=== PATIENT | male | born 1940 | race Caucasian/White ===

== ENCOUNTER 2017-02-05 15:02 | Emergency (ER) | payer OTHER ==
[~2017-02-05] VITALS: Ht 193 cm; Wt 105.0 kg
[2017-02-05 16:14] LABS: ADD MIUA? YES; BILIRUBIN NEGATIVE; BLOOD NEGATIVE; COLOR YELLOW ((YELLOW)); GLUCOSE (STRIP) 50; KETONES NEGATIVE; LEUKOCYTES MODERATE; NITRITE NEGATIVE; PROTEIN (STRIP) 100; SPECIFIC GRAVITY 1.021 (1.000-1.030); UROBILINOGEN 0.2 MG/DL (0.2-1.0)
[2017-02-05 16:34] LABS: BACTERIA RARE /HPF; EPITHELIAL CELLS RARE /HPF; MUCUS TRACE /LPF; UCUL ADDED? YES; WHITE BLOOD CELLS TNTC /HPF (0-5)
[2017-02-05 16:41] LABS: HEMATOCRIT 39.2 % (38.0-50.0); MCH 28.7 PG (29.0-34.0); MCHC 32.9 G/DL (30.0-36.0); MCV 87.1 FL (86-99); PLATELET COUNT 230 K/uL (156-360); RBC DIS.WIDTH-CV 13.9 % (11.8-14.6); RBC DIS.WIDTH-SD 44.6 % (39-53); WHITE BLOOD COUNT 8.4 K/uL (4.1-10.2)
[2017-02-05 16:52] LABS: CHLORIDE 103 mEq/L (99-109); POTASSIUM 4.1 mEq/L (3.7-5.4); SODIUM 132 mEq/L (136-147)
[2017-02-05 16:54] LABS: GLUCOSE 193 mg/dL (70-99)
[2017-02-05 16:55] LABS: ANION GAP 10 MEQ/L (2-14)
[2017-02-05 16:56] LABS: TOTAL BILIRUBIN 0.6 mg/dL (0.0-1.0)
[2017-02-05 16:57] LABS: ALKALINE PHOSPHATASE 54 IU/L (3-129)
[2017-02-05 16:58] LABS: RED BLOOD CELLS RARE /HPF (0-5)
[2017-02-05 16:58] LABS: GFR ESTIMATE (CALCULATED) > 59 mL/min/
[2017-02-05 16:59] LABS: CASTS NONE SEEN /LPF; CRYSTALS NONE SEEN
[2017-02-05 16:59] LABS: UREA NITROGEN (BUN) 15 mg/dL (9-23)
[2017-02-05] MEDS ORDERED: LISINOPRIL40 MG PO (22:09)
[2017-02-05] MEDS ORDERED: ZOFRAN4 MG PO (22:09)
[2017-02-05] MEDS ORDERED: KEFLEX500 MG PO (22:09)
[2017-02-05] MEDS ORDERED: MACROBID100 MG PO (22:34)
[2017-02-05 22:40] VITALS: BP 169/89
== END 2017-02-05 23:03 | disposition home or self-care (01) ==
LOC: EME 15:02
PROVIDERS: Physician Assistant
DX: N20.0 Calculus of kidney (principal); R11.2 Nausea with vomiting, unspecified; Z98.890 Other specified postprocedural states; E78.5 Hyperlipidemia, unspecified; I10 Essential (primary) hypertension; Z87.442 Personal history of urinary calculi; Z87.440 Personal history of urinary (tract) infections
CPT/HCPCS: 74176; 80053; 81003; 83605; 85027; 87040; 87086; 99281; 99285; J0696; J2405; J7030; J7050

== ENCOUNTER → 2017-03-14 | Outpatient (CLI) | payer OTHER ==
[~2017-03-14] MED LIST: KEFLEX500 MG PO; LISINOPRIL40 MG PO; MACROBID100 MG PO; ZOFRAN4 MG PO
== END | disposition home or self-care (01) ==
LOC: NUC 03-12 10:00 → MERGE 03-12 13:00 → NUC 09:44
DX: M41.85 Other forms of scoliosis, thoracolumbar region (principal); M15.0 Primary generalized (osteo)arthritis
CPT/HCPCS: 78306; A9503

== ENCOUNTER 2017-06-11 17:33 | Emergency (ER) | payer OTHER ==
[~2017-06-11] VITALS: Ht 193 cm; Wt 103.0 kg
[2017-06-11 18:54] LABS: ADD MIUA? YES; BILIRUBIN NEGATIVE; BLOOD SMALL; GLUCOSE (STRIP) NEGATIVE; KETONES NEGATIVE; LEUKOCYTES MODERATE; NITRITE POSITIVE; PROTEIN (STRIP) 100; SPECIFIC GRAVITY 1.009 (1.000-1.030)
[2017-06-11 18:55] LABS: COLOR DK YELLOW ((YELLOW))
[2017-06-11 19:23] LABS: EPITHELIAL CELLS RARE /HPF; WHITE BLOOD CELLS TNTC /HPF (0-5)
[2017-06-11 19:24] LABS: BACTERIA 3+ /HPF; MUCUS RARE /LPF; UCUL ADDED? YES
[2017-06-11 20:04] LABS: EOSINOPHIL (%) 3.4 % (0-5); EOSINOPHIL COUNT 0.2 K/uL (0-0.3); HEMATOCRIT 34.3 % (38.0-50.0); IMMATURE GRANULOCYTE (%) 0.6 % (0.0-0.7); INSTRUMENT ABS NEUTROPHIL CT 4.3 K/uL; LYMPHOCYTE COUNT 0.9 K/uL (1.0-2.8); MCH 29.7 PG (29.0-34.0); MCHC 34.1 G/DL (30.0-36.0); MCV 87.1 FL (86-99); MEAN PLAT.VOLUME 8.7 uM^3 (9.0-12.4); MONOCYTE (%) 15.6 % (3-12); NEUTROPHIL (%) 66.3 % (45-76); NEUTROPHIL COUNT 4.3 K/uL (1.8-6.4); PLATELET COUNT 173 K/uL (156-360); RBC DIS.WIDTH-CV 14.2 % (11.8-14.6); RBC DIS.WIDTH-SD 45.4 % (39-53); RED BLOOD COUNT 3.94 M/uL (4.00-5.50); WHITE BLOOD COUNT 6.5 K/uL (4.1-10.2)
[2017-06-11 20:14] LABS: CHLORIDE 101 mEq/L (99-109); SODIUM 131 mEq/L (136-147)
[2017-06-11 20:16] LABS: GLUCOSE 128 mg/dL (70-99)
[2017-06-11 20:17] LABS: ANION GAP 10 MEQ/L (2-14)
[2017-06-11 20:18] LABS: TOTAL BILIRUBIN 1.2 mg/dL (0.0-1.0)
[2017-06-11 20:19] LABS: ALKALINE PHOSPHATASE 51 IU/L (3-129)
[2017-06-11 20:20] LABS: GFR ESTIMATE (CALCULATED) > 59 mL/min/
[2017-06-11 20:21] LABS: UREA NITROGEN (BUN) 17 mg/dL (9-23)
[2017-06-11] MEDS ORDERED: NORCO 5/3251 TABLET PO (21:09)
[2017-06-11 21:24] VITALS: BP 144/76
== END 2017-06-11 21:25 | disposition home or self-care (01) ==
LOC: EME 17:33
PROVIDERS: Physician Assistant
PROC: 0T9B70Z Drainage of Bladder with Drainage Device, Via Natural or Artificial Opening (ICD-10-PCS; principal; 2017-06-11)
DX: R33.9 Retention of urine, unspecified (principal); N30.00 Acute cystitis without hematuria; C61 Malignant neoplasm of prostate; I10 Essential (primary) hypertension; E78.5 Hyperlipidemia, unspecified; Z88.0 Allergy status to penicillin; Z92.3 Personal history of irradiation
CPT/HCPCS: 80053; 81003; 85025; 87077; 87086; 87186; 99281; 99284

== ENCOUNTER 2017-06-15 22:36 | Emergency (ER) | payer OTHER ==
[~2017-06-15] VITALS: Ht 193 cm; Wt 101.3 kg
[~2017-06-15 22:36] MED LIST changes: +NORCO 5/3251 TABLET PO
[2017-06-15 23:15] LABS: ADD MIUA? YES; BILIRUBIN NEGATIVE; BLOOD SMALL; COLOR YELLOW ((YELLOW)); GLUCOSE (STRIP) NEGATIVE; KETONES NEGATIVE; LEUKOCYTES LARGE; NITRITE NEGATIVE; PROTEIN (STRIP) 100; SPECIFIC GRAVITY 1.009 (1.000-1.030); UROBILINOGEN 0.2 MG/DL (0.2-1.0)
[2017-06-15 23:21] LABS: BACTERIA RARE /HPF; EPITHELIAL CELLS NONE SEEN /HPF; MUCUS TRACE /LPF; UCUL ADDED? YES; WHITE BLOOD CELLS TNTC /HPF (0-5)
[2017-06-16 00:49] LABS: HEMATOCRIT 36.4 % (38.0-50.0); MCH 29.3 PG (29.0-34.0); MCHC 33.5 G/DL (30.0-36.0); MCV 87.5 FL (86-99); MEAN PLAT.VOLUME 8.6 uM^3 (9.0-12.4); PLATELET COUNT 194 K/uL (156-360); RBC DIS.WIDTH-CV 14.3 % (11.8-14.6); RBC DIS.WIDTH-SD 45.4 % (39-53); RED BLOOD COUNT 4.16 M/uL (4.00-5.50); WHITE BLOOD COUNT 5.8 K/uL (4.1-10.2)
[2017-06-16 01:02] LABS: CHLORIDE 104 mEq/L (99-109); POTASSIUM 4.4 mEq/L (3.7-5.4); SODIUM 135 mEq/L (136-147)
[2017-06-16 01:03] LABS: GLUCOSE 127 mg/dL (70-99)
[2017-06-16 01:05] LABS: ANION GAP 10 MEQ/L (2-14)
[2017-06-16 01:07] LABS: GFR ESTIMATE (CALCULATED) 52 mL/min/
[2017-06-16 01:08] LABS: UREA NITROGEN (BUN) 19 mg/dL (9-23)
[2017-06-16 01:22] VITALS: BP 151/82
[2017-06-16] MEDS ORDERED: ZOFRAN ODT4 MG PO (08:04)
== END 2017-06-16 01:23 | disposition home or self-care (01) ==
LOC: EME 22:36
PROVIDERS: Physician Assistant Medical
DX: N39.0 Urinary tract infection, site not specified (principal); Z85.46 Personal history of malignant neoplasm of prostate; Z87.442 Personal history of urinary calculi; Z87.440 Personal history of urinary (tract) infections; Z88.0 Allergy status to penicillin
CPT/HCPCS: 80048; 81003; 83605; 85027; 87040; 87086; 99281; 99284

== ENCOUNTER 2017-06-16 06:56 | Emergency (ER) | payer OTHER ==
[~2017-06-16] VITALS: Ht 193 cm; Wt 102.6 kg
[2017-06-16] MEDS ORDERED: ZOFRAN ODT4 MG PO (08:04)
[2017-06-16 08:17] VITALS: BP 124/89
== END 2017-06-16 08:17 | disposition home or self-care (01) ==
LOC: EME 06:56
PROC: 0T9B70Z Drainage of Bladder with Drainage Device, Via Natural or Artificial Opening (ICD-10-PCS; principal; 2017-06-16)
DX: R33.9 Retention of urine, unspecified (principal); N39.0 Urinary tract infection, site not specified; R11.0 Nausea; Z85.46 Personal history of malignant neoplasm of prostate; Z87.442 Personal history of urinary calculi; Z88.0 Allergy status to penicillin
CPT/HCPCS: 99281; 99284

== ENCOUNTER 2017-06-22 04:24 | Emergency (ER) | payer OTHER ==
[~2017-06-22] VITALS: Ht 193 cm; Wt 101.2 kg
[~2017-06-22 04:24] MED LIST changes: +ZOFRAN ODT4 MG PO
[2017-06-22 04:49] LABS: HEMATOCRIT 37.1 % (38.0-50.0); MCH 29.6 PG (29.0-34.0); MCV 87.1 FL (86-99); PLATELET COUNT 194 K/uL (156-360); RBC DIS.WIDTH-CV 14.6 % (11.8-14.6); RBC DIS.WIDTH-SD 46.4 % (39-53); RED BLOOD COUNT 4.26 M/uL (4.00-5.50); WHITE BLOOD COUNT 7.9 K/uL (4.1-10.2)
[2017-06-22 05:01] LABS: CHLORIDE 100 mEq/L (99-109); POTASSIUM 4.4 mEq/L (3.7-5.4)
[2017-06-22 05:02] LABS: SODIUM 128 mEq/L (136-147)
[2017-06-22 05:03] LABS: GLUCOSE 130 mg/dL (70-99)
[2017-06-22 05:04] LABS: ANION GAP 10 MEQ/L (2-14)
[2017-06-22 05:07] LABS: GFR ESTIMATE (CALCULATED) 48 mL/min/
[2017-06-22 05:08] LABS: UREA NITROGEN (BUN) 27 mg/dL (9-23)
[2017-06-22] MEDS ORDERED: CIPRO500 MG PO (05:10)
[2017-06-22 05:28] VITALS: BP 141/83
[2017-06-22 05:33] LABS: ADD MIUA? YES; BILIRUBIN NEGATIVE; BLOOD SMALL; COLOR AMBER ((YELLOW)); GLUCOSE (STRIP) NEGATIVE; KETONES NEGATIVE; LEUKOCYTES NEGATIVE; NITRITE POSITIVE; PROTEIN (STRIP) >=500; SPECIFIC GRAVITY 1.019 (1.000-1.030)
[2017-06-22 05:58] LABS: BACTERIA RARE /HPF; EPITHELIAL CELLS NONE SEEN /HPF; MUCUS NONE SEEN /LPF; RED BLOOD CELLS TNTC /HPF (0-5); UCUL ADDED? YES
== END 2017-06-22 05:29 | disposition home or self-care (01) ==
LOC: EME 04:24
PROVIDERS: Emergency Medicine
PROC: 0T2BX0Z Change Drainage Device in Bladder, External Approach (ICD-10-PCS; principal; 2017-06-22)
DX: N39.0 Urinary tract infection, site not specified (principal); T83.098A Other mechanical complication of other urinary catheter, initial encounter; R33.9 Retention of urine, unspecified; C61 Malignant neoplasm of prostate; N18.9 Chronic kidney disease, unspecified; E87.1 Hypo-osmolality and hyponatremia; Z87.442 Personal history of urinary calculi; Z88.0 Allergy status to penicillin
CPT/HCPCS: 80048; 81003; 85027; 87086; 99281; 99283

== ENCOUNTER 2017-06-22 15:23 | Emergency (ER) | payer OTHER ==
[~2017-06-22] VITALS: Ht 193 cm; Wt 100.2 kg
[~2017-06-22 15:23] MED LIST changes: +CIPRO500 MG PO
[2017-06-22 18:13] LABS: CHLORIDE 99 mEq/L (99-109); POTASSIUM 4.4 mEq/L (3.7-5.4); SODIUM 130 mEq/L (136-147)
[2017-06-22 18:14] LABS: GLUCOSE 124 mg/dL (70-99)
[2017-06-22 18:16] LABS: ANION GAP 10 MEQ/L (2-14)
[2017-06-22 18:18] LABS: GFR ESTIMATE (CALCULATED) 52 mL/min/
[2017-06-22 18:19] LABS: UREA NITROGEN (BUN) 23 mg/dL (9-23)
[2017-06-22 18:47] LABS: ADD MIUA? NO; BILIRUBIN NEGATIVE; BLOOD NEGATIVE; COLOR YELLOW ((YELLOW)); GLUCOSE (STRIP) NEGATIVE; KETONES NEGATIVE; LEUKOCYTES NEGATIVE; NITRITE NEGATIVE; PROTEIN (STRIP) 30; SPECIFIC GRAVITY 1.005 (1.000-1.030); UROBILINOGEN 0.2 MG/DL (0.2-1.0)
[2017-06-22 20:14] VITALS: BP 125/80
== END 2017-06-22 20:15 | disposition home or self-care (01) ==
LOC: EME 15:23
PROVIDERS: Physician Assistant
DX: N32.89 Other specified disorders of bladder (principal); Z85.46 Personal history of malignant neoplasm of prostate; Z87.440 Personal history of urinary (tract) infections; I10 Essential (primary) hypertension; E78.5 Hyperlipidemia, unspecified; Z87.442 Personal history of urinary calculi; Z88.0 Allergy status to penicillin; Z88.1 Allergy status to other antibiotic agents
CPT/HCPCS: 80048 91; 81003; 99281; 99284; J3010

== ENCOUNTER 2017-06-27 22:32 | Emergency (ER) | payer OTHER ==
[~2017-06-27] VITALS: Ht 193 cm; Wt 100.8 kg
[~2017-06-27 22:32] MED LIST changes: -BACTRIM,SEPT1 TABLET PO
[2017-06-27 23:51] LABS: ADD MIUA? YES; BILIRUBIN NEGATIVE; BLOOD SMALL; GLUCOSE (STRIP) 50; KETONES NEGATIVE; LEUKOCYTES NEGATIVE; NITRITE POSITIVE; PROTEIN (STRIP) 100; SPECIFIC GRAVITY 1.014 (1.000-1.030)
[2017-06-27 23:57] LABS: COLOR YELLOW ((YELLOW))
[2017-06-28] MEDS ORDERED: BACTRIM,SEPT1 TABLET PO (00:04)
[2017-06-28 00:20] VITALS: BP 108/62
[2017-06-28 00:22] LABS: BACTERIA NONE SEEN /HPF; EPITHELIAL CELLS NONE SEEN /HPF; MUCUS TRACE /LPF; UCUL ADDED? YES
== END 2017-06-28 00:26 | disposition home or self-care (01) ==
LOC: EME 22:32
PROVIDERS: Nurse Practitioner Family
PROC: 0T9B70Z Drainage of Bladder with Drainage Device, Via Natural or Artificial Opening (ICD-10-PCS; principal; 2017-06-27)
DX: N39.0 Urinary tract infection, site not specified (principal); C61 Malignant neoplasm of prostate; Z87.440 Personal history of urinary (tract) infections; Z87.442 Personal history of urinary calculi; I10 Essential (primary) hypertension; E78.5 Hyperlipidemia, unspecified; Z88.1 Allergy status to other antibiotic agents; Z88.0 Allergy status to penicillin
CPT/HCPCS: 81003; 87086; 99281; 99284

== ENCOUNTER → 2017-06-27 | Outpatient (CLI) | payer OTHER ==
[~2017-06-27] MED LIST changes: +BACTRIM,SEPT1 TABLET PO
== END | disposition home or self-care (01) ==
LOC: CDC 10:10
DX: R94.31 Abnormal electrocardiogram [ECG] [EKG] (principal)
CPT/HCPCS: 93000

== ENCOUNTER 2017-07-03 23:45 | Emergency (ER) | payer OTHER ==
[~2017-07-03] VITALS: Ht 193 cm; Wt 100.4 kg
[~2017-07-03 23:45] MED LIST changes: +BACTRIM,SEPT1 TABLET PO
[2017-07-04 00:35] LABS: HEMATOCRIT 34.3 % (38.0-50.0); MCH 29.8 PG (29.0-34.0); MCHC 33.5 G/DL (30.0-36.0); MCV 88.9 FL (86-99); MEAN PLAT.VOLUME 8.2 uM^3 (9.0-12.4); PLATELET COUNT 188 K/uL (156-360); RBC DIS.WIDTH-CV 14.6 % (11.8-14.6); RBC DIS.WIDTH-SD 47.4 % (39-53); RED BLOOD COUNT 3.86 M/uL (4.00-5.50); WHITE BLOOD COUNT 5.1 K/uL (4.1-10.2)
[2017-07-04 00:47] LABS: CHLORIDE 98 mEq/L (99-109); POTASSIUM 4.6 mEq/L (3.7-5.4); SODIUM 129 mEq/L (136-147)
[2017-07-04 00:50] LABS: GLUCOSE 117 mg/dL (70-99)
[2017-07-04 00:51] LABS: ANION GAP 10 MEQ/L (2-14)
[2017-07-04 00:52] LABS: TOTAL BILIRUBIN 0.8 mg/dL (0.0-1.0)
[2017-07-04 00:53] LABS: ALKALINE PHOSPHATASE 46 IU/L (3-129); GFR ESTIMATE (CALCULATED) 52 mL/min/
[2017-07-04 00:54] LABS: UREA NITROGEN (BUN) 23 mg/dL (9-23)
[2017-07-04 00:57] LABS: LIPASE 30 U/L (1.0-51.0)
[2017-07-04 01:24] LABS: ADD MIUA? YES; BILIRUBIN NEGATIVE; BLOOD MODERATE; COLOR AMBER ((YELLOW)); GLUCOSE (STRIP) NEGATIVE; KETONES NEGATIVE; LEUKOCYTES NEGATIVE; NITRITE POSITIVE; PROTEIN (STRIP) 100; SPECIFIC GRAVITY 1.013 (1.000-1.030)
[2017-07-04 01:49] LABS: BACTERIA NONE SEEN /HPF; EPITHELIAL CELLS NONE SEEN /HPF; MUCUS NONE SEEN /LPF; RED BLOOD CELLS 15-20 /HPF (0-5); UCUL ADDED? YES
[2017-07-04 03:59] VITALS: BP 124/71
== END 2017-07-04 04:01 | disposition home or self-care (01) ==
LOC: EME 23:45
DX: N30.00 Acute cystitis without hematuria (principal); N20.0 Calculus of kidney; C61 Malignant neoplasm of prostate; Z96.0 Presence of urogenital implants; Z87.442 Personal history of urinary calculi; Z87.440 Personal history of urinary (tract) infections; E78.5 Hyperlipidemia, unspecified; I10 Essential (primary) hypertension; Z88.0 Allergy status to penicillin; Z88.1 Allergy status to other antibiotic agents
CPT/HCPCS: 74176; 80053; 81003; 83690; 85027; 87086; 99281; 99284

== ENCOUNTER 2017-07-06 05:11 | Emergency (ER) | payer OTHER ==
[~2017-07-06] VITALS: Ht 193 cm; Wt 99.2 kg
[2017-07-06 06:04] LABS: MCH 29.9 PG (29.0-34.0); MCHC 32.9 G/DL (30.0-36.0); MCV 90.9 FL (86-99); MEAN PLAT.VOLUME 8.3 uM^3 (9.0-12.4); PLATELET COUNT 178 K/uL (156-360); RBC DIS.WIDTH-CV 15.1 % (11.8-14.6); RBC DIS.WIDTH-SD 49.6 % (39-53); RED BLOOD COUNT 3.85 M/uL (4.00-5.50); WHITE BLOOD COUNT 5.1 K/uL (4.1-10.2)
[2017-07-06 06:17] LABS: CHLORIDE 102 mEq/L (99-109); POTASSIUM 4.2 mEq/L (3.7-5.4); SODIUM 132 mEq/L (136-147)
[2017-07-06 06:18] LABS: GLUCOSE 141 mg/dL (70-99)
[2017-07-06 06:20] LABS: ANION GAP 9 MEQ/L (2-14)
[2017-07-06 06:22] LABS: ADD MIUA? YES; BILIRUBIN NEGATIVE; BLOOD SMALL; COLOR AMBER ((YELLOW)); GLUCOSE (STRIP) NEGATIVE; KETONES NEGATIVE; LEUKOCYTES NEGATIVE; NITRITE POSITIVE; PROTEIN (STRIP) 100; SPECIFIC GRAVITY 1.015 (1.000-1.030)
[2017-07-06 06:22] LABS: GFR ESTIMATE (CALCULATED) 57 mL/min/
[2017-07-06 06:23] LABS: UREA NITROGEN (BUN) 26 mg/dL (9-23)
[2017-07-06 06:52] LABS: RED BLOOD CELLS 15-20 /HPF (0-5)
[2017-07-06 06:53] LABS: EPITHELIAL CELLS RARE /HPF; MUCUS RARE /LPF; WHITE BLOOD CELLS 0-5 /HPF (0-5)
[2017-07-06 06:54] LABS: BACTERIA 1+ /HPF; CASTS PRESENT /LPF; CRYSTALS PRESENT; UCUL ADDED? NO
[2017-07-06 06:55] LABS: AMORPHOUS URATES CRYSTALS 3+
[2017-07-06 08:48] VITALS: BP 107/66
== END 2017-07-06 08:48 | disposition home or self-care (01) ==
LOC: EME 05:11
PROVIDERS: Emergency Medicine
PROC: 0T9B70Z Drainage of Bladder with Drainage Device, Via Natural or Artificial Opening (ICD-10-PCS; principal; 2017-07-06)
DX: T83.098A Other mechanical complication of other urinary catheter, initial encounter (principal); N39.0 Urinary tract infection, site not specified; E87.1 Hypo-osmolality and hyponatremia; C61 Malignant neoplasm of prostate; Z87.442 Personal history of urinary calculi
CPT/HCPCS: 80048; 81003; 85027; 99281; 99284

== ENCOUNTER 2017-07-18 01:07 | Emergency (ER) | payer OTHER ==
[~2017-07-18] VITALS: Ht 193 cm; Wt 101.5 kg
[2017-07-18] MEDS ORDERED: PYRIDIUM100 MG PO (01:59)
[2017-07-18 02:47] VITALS: BP 130/84
== END 2017-07-18 02:44 | disposition home or self-care (01) ==
LOC: EME 01:07
DX: R30.0 Dysuria (principal); C61 Malignant neoplasm of prostate; E78.5 Hyperlipidemia, unspecified; I10 Essential (primary) hypertension; Z87.442 Personal history of urinary calculi; Z88.0 Allergy status to penicillin; Z88.1 Allergy status to other antibiotic agents; Z88.5 Allergy status to narcotic agent

== ENCOUNTER 2017-08-25 07:28 | Emergency (ER) | payer OTHER ==
[~2017-08-25] VITALS: Ht 193 cm; Wt 98.3 kg
[~2017-08-25 07:28] MED LIST changes: +PYRIDIUM100 MG PO
[2017-08-25 08:13] LABS: ADD MIUA? YES; BILIRUBIN NEGATIVE; BLOOD LARGE; COLOR YELLOW ((YELLOW)); GLUCOSE (STRIP) NEGATIVE; KETONES NEGATIVE; LEUKOCYTES LARGE; NITRITE POSITIVE; PROTEIN (STRIP) >=500; SPECIFIC GRAVITY 1.024 (1.000-1.030); UROBILINOGEN 0.2 MG/DL (0.2-1.0)
[2017-08-25 08:20] LABS: BACTERIA 3+ /HPF; BUDDING YEAST 4+; EPITHELIAL CELLS NONE SEEN /HPF; MUCUS TRACE /LPF; RED BLOOD CELLS TNTC /HPF (0-5); UCUL ADDED? YES; WHITE BLOOD CELLS TNTC /HPF (0-5); WHITE BLOOD CELLS CLUMP MANY /HPF (0-5)
[2017-08-25 08:21] LABS: EOSINOPHIL (%) 3.2 % (0-5); EOSINOPHIL COUNT 0.1 K/uL (0-0.3); HEMATOCRIT 31.9 % (38.0-50.0); IMMATURE GRANULOCYTE (%) 0.5 % (0.0-0.7); LYMPHOCYTE COUNT 0.6 K/uL (1.0-2.8); MCH 31.5 PG (29.0-34.0); MCHC 33.2 G/DL (30.0-36.0); MCV 94.7 FL (86-99); MEAN PLAT.VOLUME 8.1 uM^3 (9.0-12.4); MONOCYTE (%) 14.7 % (3-12); MONOCYTE COUNT 0.6 K/uL (0-0.8); NEUTROPHIL (%) 68.1 % (45-76); PLATELET COUNT 176 K/uL (156-360); RBC DIS.WIDTH-CV 13.5 % (11.8-14.6); RBC DIS.WIDTH-SD 47.1 % (39-53); RED BLOOD COUNT 3.37 M/uL (4.00-5.50); WHITE BLOOD COUNT 4.4 K/uL (4.1-10.2)
[2017-08-25 08:29] LABS: CHLORIDE 101 mEq/L (99-109); POTASSIUM 4.4 mEq/L (3.7-5.4); SODIUM 132 mEq/L (136-147)
[2017-08-25 08:30] LABS: GLUCOSE 146 mg/dL (70-99)
[2017-08-25 08:32] LABS: ANION GAP 11 MEQ/L (2-14)
[2017-08-25 08:34] LABS: GFR ESTIMATE (CALCULATED) > 59 mL/min/
[2017-08-25 08:35] LABS: UREA NITROGEN (BUN) 16 mg/dL (9-23)
[2017-08-25] MEDS ORDERED: LEVAQUIN500 MG PO ×2 (10:57→11:17)
[2017-08-25 11:56] VITALS: BP 122/72
== END 2017-08-25 11:58 | disposition home or self-care (01) ==
LOC: EME 07:28
PROVIDERS: Emergency Medicine
DX: N39.0 Urinary tract infection, site not specified (principal); Z85.46 Personal history of malignant neoplasm of prostate; Z87.442 Personal history of urinary calculi
CPT/HCPCS: 80048; 81003; 85025; 87086; 99281; 99284; J1956; J7030

== ENCOUNTER 2017-09-15 08:10 | Emergency (ER) | payer OTHER ==
[~2017-09-15] VITALS: Ht 193 cm; Wt 98.5 kg
[~2017-09-15 08:10] MED LIST changes: +LEVAQUIN500 MG PO
[2017-09-15 08:46] LABS: HEMATOCRIT 35.4 % (38.0-50.0); MCHC 34.2 G/DL (30.0-36.0); MCV 90.8 FL (86-99); MEAN PLAT.VOLUME 7.8 uM^3 (9.0-12.4); PLATELET COUNT 206 K/uL (156-360); RBC DIS.WIDTH-SD 42.8 % (39-53); WHITE BLOOD COUNT 6.8 K/uL (4.1-10.2)
[2017-09-15 08:50] LABS: ADD MIUA? YES; BILIRUBIN NEGATIVE; BLOOD SMALL; COLOR STRAW ((YELLOW)); GLUCOSE (STRIP) NEGATIVE; KETONES NEGATIVE; LEUKOCYTES LARGE; NITRITE NEGATIVE; PROTEIN (STRIP) 30; SPECIFIC GRAVITY 1.008 (1.000-1.030); UROBILINOGEN 0.2 MG/DL (0.2-1.0)
[2017-09-15 08:57] LABS: CHLORIDE 96 mEq/L (99-109); POTASSIUM 4.5 mEq/L (3.7-5.4); SODIUM 127 mEq/L (136-147)
[2017-09-15 08:59] LABS: GLUCOSE 139 mg/dL (70-99)
[2017-09-15 09:00] LABS: BACTERIA RARE /HPF; EPITHELIAL CELLS NONE SEEN /HPF; MUCUS TRACE /LPF; UCUL ADDED? YES; WHITE BLOOD CELLS TNTC /HPF (0-5)
[2017-09-15 09:00] LABS: ANION GAP 9 MEQ/L (2-14)
[2017-09-15 09:03] LABS: GFR ESTIMATE (CALCULATED) > 59 mL/min/
[2017-09-15 09:04] LABS: UREA NITROGEN (BUN) 14 mg/dL (9-23)
[2017-09-15] MEDS ORDERED: PYRIDIUM100 MG PO (09:41)
[2017-09-15] MEDS ORDERED: CIPRO500 MG PO (09:41)
[2017-09-15 10:15] VITALS: BP 158/96
== END 2017-09-15 10:21 | disposition home or self-care (01) ==
LOC: EME 08:10
PROVIDERS: Nurse Practitioner Family
DX: N39.0 Urinary tract infection, site not specified (principal); N28.89 Other specified disorders of kidney and ureter; C61 Malignant neoplasm of prostate; Z87.440 Personal history of urinary (tract) infections; E78.5 Hyperlipidemia, unspecified; I10 Essential (primary) hypertension; Z87.442 Personal history of urinary calculi; Z88.0 Allergy status to penicillin; Z88.5 Allergy status to narcotic agent
CPT/HCPCS: 80048; 81003; 85027; 87086; 99281; 99284

== ENCOUNTER 2017-10-05 23:14 | Inpatient (IN) | payer OTHER ==
[~2017-10-05] VITALS: Ht 193 cm; Wt 96.8 kg
[2017-10-05 23:57] LABS: HEMATOCRIT 34.6 % (38.0-50.0); MCH 30.8 PG (29.0-34.0); MCHC 34.1 G/DL (30.0-36.0); MCV 90.3 FL (86-99); MEAN PLAT.VOLUME 7.8 uM^3 (9.0-12.4); PLATELET COUNT 178 K/uL (156-360); RBC DIS.WIDTH-CV 13.2 % (11.8-14.6); RBC DIS.WIDTH-SD 43.8 % (39-53); RED BLOOD COUNT 3.83 M/uL (4.00-5.50); WHITE BLOOD COUNT 13.8 K/uL (4.1-10.2)
[2017-10-06 00:07] LABS: CHLORIDE 102 mEq/L (99-109)
[2017-10-06 00:08] LABS: SODIUM 131 mEq/L (136-147)
[2017-10-06 00:10] LABS: GLUCOSE 181 mg/dL (70-99)
[2017-10-06 00:11] LABS: ANION GAP 9 MEQ/L (2-14)
[2017-10-06 00:12] LABS: TOTAL BILIRUBIN 0.7 mg/dL (0.0-1.0)
[2017-10-06 00:13] LABS: ALKALINE PHOSPHATASE 40 IU/L (3-129); GFR ESTIMATE (CALCULATED) > 59 mL/min/
[2017-10-06 00:15] LABS: UREA NITROGEN (BUN) 15 mg/dL (9-23)
[2017-10-06 00:18] LABS: TROP-I INTERPRETATION NEGATIVE; TROPONIN-I < 0.01 ng/mL (0.0-0.30)
[2017-10-06 00:39] LABS: ADD MIUA? YES; BILIRUBIN NEGATIVE; BLOOD MODERATE; COLOR YELLOW ((YELLOW)); GLUCOSE (STRIP) NEGATIVE; KETONES 5; LEUKOCYTES LARGE; NITRITE NEGATIVE; PROTEIN (STRIP) 100; SPECIFIC GRAVITY 1.012 (1.000-1.030); UROBILINOGEN 0.2 MG/DL (0.2-1.0)
[2017-10-06 00:53] LABS: BACTERIA RARE /HPF; CALCIUM OXALATE CRYSTALS 1+ /HPF; EPITHELIAL CELLS NONE SEEN /HPF; MUCUS TRACE /LPF; RED BLOOD CELLS TNTC /HPF (0-5); UCUL ADDED? YES; WHITE BLOOD CELLS TNTC /HPF (0-5)
[2017-10-06 05:52] LABS: HEMATOCRIT 34.7 % (38.0-50.0); MCH 30.8 PG (29.0-34.0); MCHC 34.3 G/DL (30.0-36.0); MCV 89.9 FL (86-99); PLATELET COUNT 201 K/uL (156-360); RBC DIS.WIDTH-CV 13.2 % (11.8-14.6); RBC DIS.WIDTH-SD 43.7 % (39-53); RED BLOOD COUNT 3.86 M/uL (4.00-5.50); WHITE BLOOD COUNT 14.6 K/uL (4.1-10.2)
[2017-10-06 06:05] LABS: CHLORIDE 101 mEq/L (99-109); POTASSIUM 4.2 mEq/L (3.7-5.4); SODIUM 129 mEq/L (136-147)
[2017-10-06 06:07] LABS: GLUCOSE 153 mg/dL (70-99)
[2017-10-06 06:08] LABS: ANION GAP 9 MEQ/L (2-14)
[2017-10-06 06:11] LABS: GFR ESTIMATE (CALCULATED) > 59 mL/min/
[2017-10-06 06:12] LABS: UREA NITROGEN (BUN) 14 mg/dL (9-23)
[2017-10-06 06:14] LABS: TROP-I INTERPRETATION NEGATIVE; TROPONIN-I < 0.01 ng/mL (0.0-0.30)
[2017-10-06 08:30] VITALS: BP 142/77
[2017-10-06 08:58] LABS: POINT-OF-CARE METER ID UU13113831
[2017-10-06 11:20] VITALS: BP 144/70
[2017-10-06 12:29] LABS: POINT-OF-CARE METER ID UU13113831
[2017-10-06 12:35] LABS: TROP-I INTERPRETATION NEGATIVE; TROPONIN-I < 0.01 ng/mL (0.0-0.30)
[2017-10-06] MEDS ORDERED: URIBEL CAPSULE1 EACH PO (14:30)
[2017-10-06] MEDS ORDERED: NORVASC5 MG PO (14:30)
[2017-10-06] MEDS ORDERED: FLOMAX0.4 MG PO ×2 (14:31→16:04)
[2017-10-06] MEDS ORDERED: METFORMIN HCL500 MG PO (14:34)
[2017-10-06] MEDS ORDERED: FINASTERIDE5 MG PO (14:35)
[2017-10-06 15:42] VITALS: BP 136/70
[2017-10-06] MEDS ORDERED: ENDOCET 10-3251 EACH PO (16:06)
[2017-10-06] MEDS ORDERED: GLUCOPHAGE XR,500 MG PO ×2 (16:07→16:08)
[2017-10-06] MEDS ORDERED: IBUPROFEN200 M1 PO (16:09)
[2017-10-06 16:48] LABS: POINT-OF-CARE METER ID UU13113831
[2017-10-06 17:22] LABS: POINT-OF-CARE METER ID UU13113831
[2017-10-06 21:21] VITALS: BP 125/65
[2017-10-06 21:51] LABS: POINT-OF-CARE METER ID UU13113700
[2017-10-07] VITALS (7 sets, daily range): BP systolic 112–151; BP diastolic 63–85
[2017-10-07 06:03] LABS: MCH 30.9 PG (29.0-34.0); MCHC 33.6 G/DL (30.0-36.0); MCV 91.9 FL (86-99); MEAN PLAT.VOLUME 8.3 uM^3 (9.0-12.4); PLATELET COUNT 167 K/uL (156-360); RBC DIS.WIDTH-CV 13.4 % (11.8-14.6); RBC DIS.WIDTH-SD 45.7 % (39-53); RED BLOOD COUNT 3.59 M/uL (4.00-5.50); WHITE BLOOD COUNT 9.7 K/uL (4.1-10.2)
[2017-10-07 07:37] LABS: CHLORIDE 103 MEQ/L (99-109); GLUCOSE 127 mg/dL (70-99); POTASSIUM 3.8 MEQ/L (3.7-5.4); SAMPLE HEMOLYSIS CHECK 0; SAMPLE ICTERIC CHECK 0; SAMPLE LIPEMIA CHECK 0; SODIUM 134 MEQ/L (136-147); UREA NITROGEN (BUN) 18 mg/dL (9-23)
[2017-10-07 08:20] LABS: GFR ESTIMATE (CALCULATED) > 59 mL/min/
[2017-10-07 08:23] LABS: ANION GAP 9 MEQ/L (2-14)
[2017-10-07 08:35] LABS: POINT-OF-CARE METER ID UU14162513
[2017-10-07 11:13] LABS: POINT-OF-CARE METER ID UU14162513
[2017-10-07 17:21] LABS: POINT-OF-CARE METER ID UU14162513
[2017-10-07 21:31] LABS: POINT-OF-CARE METER ID UU14162513
[2017-10-08 03:44] VITALS: BP 152/78
[2017-10-08 05:25] LABS: HEMATOCRIT 32.6 % (38.0-50.0); MCH 29.8 PG (29.0-34.0); MCHC 33.1 G/DL (30.0-36.0); MCV 89.8 FL (86-99); PLATELET COUNT 163 K/uL (156-360); RBC DIS.WIDTH-CV 13.2 % (11.8-14.6); RBC DIS.WIDTH-SD 44.1 % (39-53); RED BLOOD COUNT 3.63 M/uL (4.00-5.50); WHITE BLOOD COUNT 6.7 K/uL (4.1-10.2)
[2017-10-08 06:04] LABS: ANION GAP 9 MEQ/L (2-14); CHLORIDE 101 MEQ/L (99-109); GFR ESTIMATE (CALCULATED) > 59 mL/min/; GLUCOSE 130 mg/dL (70-99); MAGNESIUM 2.1 mg/dl (1.3-2.7); POTASSIUM 3.7 MEQ/L (3.7-5.4); SAMPLE HEMOLYSIS CHECK 0; SAMPLE ICTERIC CHECK 0; SAMPLE LIPEMIA CHECK 0; SODIUM 133 MEQ/L (136-147); UREA NITROGEN (BUN) 19 mg/dL (9-23)
[2017-10-08 09:53] VITALS: BP 140/84
[2017-10-08 10:05] LABS: POINT-OF-CARE METER ID UU13113700
[2017-10-08 13:22] LABS: POINT-OF-CARE METER ID UU13113700
[2017-10-08 16:47] VITALS: BP 149/73
[2017-10-08 17:33] LABS: POINT-OF-CARE METER ID UU13113700
[2017-10-08 20:00] VITALS: BP 122/72
[2017-10-08 21:44] LABS: POINT-OF-CARE METER ID UU13113700
[2017-10-08 23:45] VITALS: BP 143/79
[2017-10-09 03:29] VITALS: BP 128/75
[2017-10-09 07:21] VITALS: BP 135/81
[2017-10-09 08:29] LABS: POINT-OF-CARE METER ID UU13113831
[2017-10-09 12:24] VITALS: BP 141/87
[2017-10-09 12:44] LABS: POINT-OF-CARE METER ID UU13113831
[2017-10-09 16:15] VITALS: BP 151/74
[2017-10-09 16:45] LABS: POINT-OF-CARE METER ID UU14162513
[2017-10-09 19:30] VITALS: BP 147/69
[2017-10-09 21:32] LABS: POINT-OF-CARE METER ID UU14162513
[2017-10-10] VITALS: BP 138/66
[2017-10-10 08:07] LABS: POINT-OF-CARE METER ID UU14162513
[2017-10-10 08:58] VITALS: BP 144/88
[2017-10-10 11:46] VITALS: BP 140/90
[2017-10-10 16:00] VITALS: BP 119/75
[2017-10-10 17:02] LABS: POINT-OF-CARE METER ID UU13113831
[2017-10-10 20:00] VITALS: BP 130/81
[2017-10-10 21:43] LABS: POINT-OF-CARE METER ID UU13113831
[2017-10-10 23:44] VITALS: BP 139/84
[2017-10-11 04:03] VITALS: BP 153/81
[2017-10-11 07:14] VITALS: BP 144/81
[2017-10-11 08:44] LABS: POINT-OF-CARE METER ID UU13113831
[2017-10-11 10:35] VITALS: BP 136/78
[2017-10-11] MEDS ORDERED: FINASTERIDE5 MG PO (12:25)
[2017-10-11] MEDS ORDERED: ROCEPHIN1 GM/50 ML IV (12:31)
[2017-10-11 13:28] LABS: POINT-OF-CARE METER ID UU13113700
== END 2017-10-11 15:19 | DRG 699 ==
LOC: EME 23:14 → EDOF 10-06 03:28 → ENRESERV 10-06 03:30 → 5WEST 10-06 08:09 → ENPENDDIS 10-11 → 5WEST 10-11 15:19
PROVIDERS: Emergency Medicine; Internal Medicine; Physician Assistant
DX: T83.511A Infection and inflammatory reaction due to indwelling urethral catheter, initial encounter (principal); N39.0 Urinary tract infection, site not specified; R78.81 Bacteremia; B96.20 Unspecified Escherichia coli [E. coli] as the cause of diseases classified elsewhere; E87.1 Hypo-osmolality and hyponatremia; E86.9 Volume depletion, unspecified; R11.0 Nausea; E11.9 Type 2 diabetes mellitus without complications; I10 Essential (primary) hypertension; E78.5 Hyperlipidemia, unspecified; N28.89 Other specified disorders of kidney and ureter; N40.1 Benign prostatic hyperplasia with lower urinary tract symptoms; R33.8 Other retention of urine; Y84.6 Urinary catheterization as the cause of abnormal reaction of the patient, or of later complication, without mention of misadventure at the time of the procedure; Z16.24 Resistance to multiple antibiotics; Z91.81 History of falling; Z85.46 Personal history of malignant neoplasm of prostate; Z92.3 Personal history of irradiation; Z60.2 Problems related to living alone; Z87.891 Personal history of nicotine dependence; Z87.442 Personal history of urinary calculi; Z82.49 Family history of ischemic heart disease and other diseases of the circulatory system
CPT/HCPCS: 71010; 80048; 80053; 81003; 82948; 83605; 83735; 84484; 85027; 87040; 87077; 87086; 87186; 87801; 93005; 99281; 99285; G8978 GP CJ; G8979 GP CI; J0692; J0696; J1650; J1956; J2405; J7030

== ENCOUNTER 2017-11-12 16:41 | Emergency (ER) | payer OTHER ==
[~2017-11-12] VITALS: Ht 193 cm; Wt 97.1 kg
[~2017-11-12 16:41] MED LIST changes: +ENDOCET 10-3251 EACH PO; +FINASTERIDE5 MG PO; +FLOMAX0.4 MG PO; +GLUCOPHAGE XR,500 MG PO; +IBUPROFEN200 M1 PO; +METFORMIN HCL500 MG PO; +NORVASC5 MG PO; +ROCEPHIN1 GM/50 ML IV; +URIBEL CAPSULE1 EACH PO
[2017-11-12 22:08] LABS: APPEARANCE SL.HAZY ((CLEAR)); BILIRUBIN NEGATIVE; BLOOD NEGATIVE; COLOR YELLOW ((YELLOW)); GLUCOSE (STRIP) NEGATIVE; KETONES NEGATIVE; LEUKOCYTES MODERATE; NITRITE NEGATIVE; PROTEIN (STRIP) 100; SPECIFIC GRAVITY 1.011 (1.000-1.030); UROBILINOGEN 0.2 MG/DL (0.2-1.0)
[2017-11-12 22:16] LABS: BACTERIA RARE /HPF; EPITHELIAL CELLS RARE /HPF; MUCUS TRACE /LPF; UCUL ADDED? YES; WHITE BLOOD CELLS TNTC /HPF (0-5)
[2017-11-12 22:30] VITALS: BP 112/76
== END 2017-11-12 23:08 | disposition home or self-care (01) ==
LOC: RME 16:41 → EME 16:41 → RME 23:08
PROC: 0T2BX0Z Change Drainage Device in Bladder, External Approach (ICD-10-PCS; principal; 2017-11-12)
DX: Z46.6 Encounter for fitting and adjustment of urinary device (principal); Z85.46 Personal history of malignant neoplasm of prostate; I10 Essential (primary) hypertension; E78.5 Hyperlipidemia, unspecified; Z87.442 Personal history of urinary calculi; Z87.440 Personal history of urinary (tract) infections; Z87.891 Personal history of nicotine dependence; Z88.5 Allergy status to narcotic agent; Z88.0 Allergy status to penicillin; Z88.8 Allergy status to other drugs, medicaments and biological substances
CPT/HCPCS: 81003; 87077; 87086; 87186; 99281; 99284

== ENCOUNTER 2017-11-28 05:26 | Emergency (ER) | payer OTHER ==
[~2017-11-28] VITALS: Ht 193 cm; Wt 95.5 kg
[2017-11-28 05:56] LABS: HEMOGLOBIN 13.1 G/DL (12.5-16.6); MCH 29.6 PG (29.0-34.0); MCHC 34.5 G/DL (30.0-36.0); MCV 85.8 FL (86-99); PLATELET COUNT 276 K/uL (156-360); RBC DIS.WIDTH-CV 14.3 % (11.8-14.6); RBC DIS.WIDTH-SD 44.3 % (39-53); RED BLOOD COUNT 4.43 M/uL (4.00-5.50)
[2017-11-28 06:07] LABS: CHLORIDE 103 mEq/L (99-109); POTASSIUM 3.9 mEq/L (3.7-5.4)
[2017-11-28 06:08] LABS: SODIUM 131 mEq/L (136-147)
[2017-11-28 06:09] LABS: GLUCOSE 135 mg/dL (70-99)
[2017-11-28 06:13] LABS: GFR ESTIMATE (CALCULATED) > 59 mL/min/ (58.99-99999)
[2017-11-28 06:14] LABS: UREA NITROGEN (BUN) 10 mg/dL (9-23)
[2017-11-28 08:22] LABS: ALBUMIN 4.1 g/dL (3.2-4.8)
[2017-11-28 08:25] LABS: TOTAL PROTEIN 6.6 g/dL (6.4-8.3)
[2017-11-28 08:27] LABS: TOTAL BILIRUBIN 0.5 mg/dL (0.0-1.0)
[2017-11-28 08:28] LABS: ALKALINE PHOSPHATASE 47 IU/L (3-129)
[2017-11-28 08:30] LABS: AST (GOT) 17 IU/L (2-34); DIRECT BILIRUBIN 0.2 mg/dL (0.0-0.3)
[2017-11-28 08:31] LABS: ALT (GPT) 23 IU/L (3-49)
[2017-11-28 08:32] LABS: LIPASE 49 U/L (1.0-51.0)
[2017-11-28 08:53] LABS: CREATINE KINASE 94 IU/L (1-294)
[2017-11-28 08:57] LABS: APPEARANCE CLOUDY ((CLEAR)); BILIRUBIN NEGATIVE; BLOOD NEGATIVE; COLOR YELLOW ((YELLOW)); GLUCOSE (STRIP) NEGATIVE; KETONES NEGATIVE; LEUKOCYTES LARGE; NITRITE NEGATIVE; PROTEIN (STRIP) 100; SPECIFIC GRAVITY 1.015 (1.000-1.030); UROBILINOGEN 0.2 MG/DL (0.2-1.0)
[2017-11-28 09:24] LABS: BACTERIA 2+ /HPF; CALCIUM OXALATE CRYSTALS 1+ /HPF; EPITHELIAL CELLS 1+ /HPF; MUCUS NONE SEEN /LPF; RED BLOOD CELLS NONE SEEN /HPF (0-5); UCUL ADDED? YES; WHITE BLOOD CELLS TNTC /HPF (0-5)
[2017-11-28] MEDS ORDERED: CIPRO500 MG PO (10:49)
[2017-11-28] MEDS ORDERED: ZOFRAN ODT4 MG PO (11:47)
[2017-11-28 12:04] VITALS: BP 136/89
== END 2017-11-28 12:12 | disposition home or self-care (01) ==
LOC: EME 05:26
PROVIDERS: Physician Assistant
DX: N39.0 Urinary tract infection, site not specified (principal); B96.5 Pseudomonas (aeruginosa) (mallei) (pseudomallei) as the cause of diseases classified elsewhere; E78.5 Hyperlipidemia, unspecified; E11.9 Type 2 diabetes mellitus without complications; I10 Essential (primary) hypertension; M54.9 Dorsalgia, unspecified; Z87.891 Personal history of nicotine dependence; Z96.0 Presence of urogenital implants; Z87.442 Personal history of urinary calculi; Z85.46 Personal history of malignant neoplasm of prostate; Z88.0 Allergy status to penicillin; Z88.5 Allergy status to narcotic agent; Z88.1 Allergy status to other antibiotic agents
CPT/HCPCS: 71046; 80048; 80076; 81003; 82550; 83690; 85027; 87077; 87086; 87186; 87502; J1956; J2405; J7030

== ENCOUNTER → 2017-12-19 | Outpatient (CLI) | payer OTHER | END | disposition home or self-care (01) | LOC: CDC 14:37 | DX: Z01.810 Encounter for preprocedural cardiovascular examination (principal); R33.9 Retention of urine, unspecified | CPT/HCPCS: 93000 ==

== ENCOUNTER 2018-01-03 08:31 | Emergency (ER) | payer OTHER ==
[~2018-01-03] VITALS: Ht 193 cm; Wt 99.8 kg
[2018-01-03 09:03] LABS: APPEARANCE CLOUDY ((CLEAR)); BILIRUBIN NEGATIVE; BLOOD MODERATE; COLOR YELLOW ((YELLOW)); GLUCOSE (STRIP) NEGATIVE; KETONES NEGATIVE; LEUKOCYTES LARGE; NITRITE POSITIVE; PROTEIN (STRIP) 100; SPECIFIC GRAVITY 1.011 (1.000-1.030); UROBILINOGEN 0.2 MG/DL (0.2-1.0)
[2018-01-03 09:06] LABS: HEMATOCRIT 36.8 % (38.0-50.0); HEMOGLOBIN 12.2 G/DL (12.5-16.6); MCH 29.3 PG (29.0-34.0); MCHC 33.2 G/DL (30.0-36.0); MCV 88.2 FL (86-99); PLATELET COUNT 224 K/uL (156-360); RBC DIS.WIDTH-CV 15.3 % (11.8-14.6); RBC DIS.WIDTH-SD 49.4 % (39-53); RED BLOOD COUNT 4.17 M/uL (4.00-5.50)
[2018-01-03 09:20] LABS: CHLORIDE 103 mEq/L (99-109); POTASSIUM 4.4 mEq/L (3.7-5.4); SODIUM 135 mEq/L (136-147)
[2018-01-03 09:21] LABS: GLUCOSE 129 mg/dL (70-99)
[2018-01-03 09:25] LABS: CREATININE 0.9 mg/dL (0.6-1.3); GFR ESTIMATE (CALCULATED) > 59 mL/min/ (58.99-99999)
[2018-01-03 09:26] LABS: UREA NITROGEN (BUN) 16 mg/dL (9-23)
[2018-01-03 09:27] LABS: BACTERIA 1+ /HPF; CALCIUM OXALATE CRYSTALS FEW /HPF; EPITHELIAL CELLS RARE /HPF; MUCUS NONE SEEN /LPF; RED BLOOD CELLS 15-20 /HPF (0-5); WHITE BLOOD CELLS TNTC /HPF (0-5)
[2018-01-03] MEDS ORDERED: CIPRO500 MG PO (11:07)
[2018-01-03] MEDS ORDERED: NORCO 5/3251 TABLET PO (11:07)
[2018-01-03 11:41] VITALS: BP 148/90
== END 2018-01-03 13:00 | disposition home or self-care (01) ==
LOC: EME 08:31
PROVIDERS: Physician Assistant
DX: N39.0 Urinary tract infection, site not specified (principal); B96.5 Pseudomonas (aeruginosa) (mallei) (pseudomallei) as the cause of diseases classified elsewhere; N20.0 Calculus of kidney; N28.89 Other specified disorders of kidney and ureter; I25.10 Atherosclerotic heart disease of native coronary artery without angina pectoris; K80.20 Calculus of gallbladder without cholecystitis without obstruction; M47.896 Other spondylosis, lumbar region; I10 Essential (primary) hypertension; E78.5 Hyperlipidemia, unspecified; Z87.891 Personal history of nicotine dependence; Z96.0 Presence of urogenital implants; Z92.3 Personal history of irradiation; Z85.46 Personal history of malignant neoplasm of prostate; Z87.442 Personal history of urinary calculi; Z88.1 Allergy status to other antibiotic agents; Z88.0 Allergy status to penicillin; Z88.5 Allergy status to narcotic agent; Z88.8 Allergy status to other drugs, medicaments and biological substances
CPT/HCPCS: 74176; 80048; 81003; 85027; 87077; 99281; 99284; J2405; J3010

== ENCOUNTER 2018-01-08 07:28 | Emergency (ER) | payer OTHER ==
[~2018-01-08] VITALS: Ht 193 cm; Wt 100.3 kg
[2018-01-08 08:08] LABS: BASOPHIL (%) 1.2 % (0-1); BASOPHIL COUNT 0.1 K/uL (0-0.1); EOSINOPHIL (%) 6.8 % (0-5); EOSINOPHIL COUNT 0.4 K/uL (0-0.3); HEMATOCRIT 36.6 % (38.0-50.0); HEMOGLOBIN 12.4 G/DL (12.5-16.6); IMMATURE GRANULOCYTE (%) 0.3 % (0.0-0.7); LYMPHOCYTE (%) 14.9 % (15-42); LYMPHOCYTE COUNT 0.9 K/uL (1.0-2.8); MCH 29.7 PG (29.0-34.0); MCHC 33.9 G/DL (30.0-36.0); MCV 87.8 FL (86-99); MONOCYTE (%) 12.5 % (3-12); MONOCYTE COUNT 0.7 K/uL (0-0.8); NEUTROPHIL (%) 64.3 % (45-76); NEUTROPHIL COUNT 3.8 K/uL (1.8-6.4); PLATELET COUNT 246 K/uL (156-360); RBC DIS.WIDTH-CV 14.9 % (11.8-14.6); RBC DIS.WIDTH-SD 48.2 % (39-53); RED BLOOD COUNT 4.17 M/uL (4.00-5.50); WHITE BLOOD COUNT 5.9 K/uL (4.1-10.2)
[2018-01-08 08:30] LABS: APPEARANCE SL.HAZY ((CLEAR)); BILIRUBIN NEGATIVE; BLOOD NEGATIVE; COLOR YELLOW ((YELLOW)); GLUCOSE (STRIP) NEGATIVE; KETONES NEGATIVE; LEUKOCYTES LARGE; NITRITE NEGATIVE; PROTEIN (STRIP) 100; SPECIFIC GRAVITY 1.023 (1.000-1.030); UROBILINOGEN 0.2 MG/DL (0.2-1.0)
[2018-01-08 08:36] LABS: BACTERIA NONE SEEN /HPF; CALCIUM OXALATE CRYSTALS 3+ /HPF; EPITHELIAL CELLS NONE SEEN /HPF; MUCUS TRACE /LPF; RED BLOOD CELLS 15-20 /HPF (0-5); UCUL ADDED? YES; WHITE BLOOD CELLS 30-40 /HPF (0-5)
[2018-01-08 08:40] LABS: CHLORIDE 104 MEQ/L (99-109); CREATININE 0.9 MG/DL (0.6-1.3); GFR ESTIMATE (CALCULATED) > 59 mL/min/ (58.99-99999); GLUCOSE 139 mg/dL (70-99); POTASSIUM 4.1 MEQ/L (3.7-5.4); SODIUM 137 MEQ/L (136-147); UREA NITROGEN (BUN) 16 mg/dL (9-23)
[2018-01-08] MEDS ORDERED: CIPRO500 MG PO (09:15)
[2018-01-08] MEDS ORDERED: PERCOCET 5/31 TABLET PO (09:15)
[2018-01-08] MEDS ORDERED: BACTRIM,SEPT1 TABLET PO (09:19)
[2018-01-08] MEDS ORDERED: TORADOL10 MG PO (09:29)
[2018-01-08 10:09] VITALS: BP 130/58
== END 2018-01-08 10:10 | disposition home or self-care (01) ==
LOC: EME 07:28
PROVIDERS: Emergency Medicine
DX: N39.0 Urinary tract infection, site not specified (principal); I10 Essential (primary) hypertension; E78.5 Hyperlipidemia, unspecified; Z87.891 Personal history of nicotine dependence; Z96.0 Presence of urogenital implants; Z87.442 Personal history of urinary calculi; Z98.890 Other specified postprocedural states; Z90.79 Acquired absence of other genital organ(s); Z85.46 Personal history of malignant neoplasm of prostate; Z92.3 Personal history of irradiation; Z88.1 Allergy status to other antibiotic agents; Z88.0 Allergy status to penicillin; Z88.5 Allergy status to narcotic agent; Z88.8 Allergy status to other drugs, medicaments and biological substances
CPT/HCPCS: 80048; 81003; 85025; 99281; 99284; J3010

== ENCOUNTER 2018-01-08 18:20 | Emergency (ER) | payer OTHER ==
[~2018-01-08] VITALS: Ht 193 cm; Wt 99.9 kg
[~2018-01-08 18:20] MED LIST changes: +PERCOCET 5/31 TABLET PO; +TORADOL10 MG PO
[2018-01-08 18:29] VITALS: BP 162/98
== END 2018-01-08 21:49 | disposition home or self-care (01) ==
LOC: EME 18:20
DX: N39.0 Urinary tract infection, site not specified (principal); N50.819 Testicular pain, unspecified; E78.5 Hyperlipidemia, unspecified; I10 Essential (primary) hypertension; Z85.46 Personal history of malignant neoplasm of prostate; Z87.442 Personal history of urinary calculi; Z87.440 Personal history of urinary (tract) infections; Z87.891 Personal history of nicotine dependence; Z88.1 Allergy status to other antibiotic agents; Z88.0 Allergy status to penicillin; Z88.5 Allergy status to narcotic agent; Z88.8 Allergy status to other drugs, medicaments and biological substances
CPT/HCPCS: 76870; 99281; 99284

== ENCOUNTER 2018-02-18 11:41 | Emergency (ER) | payer OTHER ==
[~2018-02-18] VITALS: Ht 193 cm; Wt 100.5 kg
[2018-02-18 12:45] LABS: BASOPHIL (%) 0.9 % (0-1); BASOPHIL COUNT 0.1 K/uL (0-0.1); EOSINOPHIL (%) 3.2 % (0-5); EOSINOPHIL COUNT 0.2 K/uL (0-0.3); HEMATOCRIT 37.3 % (38.0-50.0); HEMOGLOBIN 12.9 G/DL (12.5-16.6); IMMATURE GRANULOCYTE (%) 0.4 % (0.0-0.7); MCH 29.9 PG (29.0-34.0); MCHC 34.6 G/DL (30.0-36.0); MCV 86.3 FL (86-99); MONOCYTE (%) 12.9 % (3-12); MONOCYTE COUNT 0.7 K/uL (0-0.8); NEUTROPHIL (%) 64.6 % (45-76); NEUTROPHIL COUNT 3.4 K/uL (1.8-6.4); PLATELET COUNT 270 K/uL (156-360); RBC DIS.WIDTH-CV 14.2 % (11.8-14.6); RBC DIS.WIDTH-SD 44.6 % (39-53); RED BLOOD COUNT 4.32 M/uL (4.00-5.50); WHITE BLOOD COUNT 5.3 K/uL (4.1-10.2)
[2018-02-18 12:59] LABS: CHLORIDE 99 mEq/L (99-109); POTASSIUM 4.7 mEq/L (3.7-5.4); SODIUM 130 mEq/L (136-147)
[2018-02-18 13:00] LABS: GLUCOSE 127 mg/dL (70-99)
[2018-02-18 13:04] LABS: GFR ESTIMATE (CALCULATED) > 59 mL/min/ (58.99-99999)
[2018-02-18 13:05] LABS: UREA NITROGEN (BUN) 22 mg/dL (9-23)
[2018-02-18] MEDS ORDERED: PERCOCET 5/31 TABLET PO (14:32)
[2018-02-18 14:53] VITALS: BP 141/90
[2018-02-18 14:59] LABS: APPEARANCE SL.HAZY ((CLEAR)); BILIRUBIN NEGATIVE; BLOOD SMALL; GLUCOSE (STRIP) NEGATIVE; KETONES NEGATIVE; LEUKOCYTES MODERATE; NITRITE NEGATIVE; PROTEIN (STRIP) NEGATIVE; SPECIFIC GRAVITY 1.012 (1.000-1.030); UROBILINOGEN 0.2 MG/DL (0.2-1.0)
[2018-02-18 15:02] LABS: COLOR GREEN ((YELLOW))
[2018-02-18 15:04] LABS: BACTERIA RARE /HPF; EPITHELIAL CELLS NONE SEEN /HPF; MUCUS TRACE /LPF; UCUL ADDED? YES; WHITE BLOOD CELLS 40-50 /HPF (0-5)
== END 2018-02-18 15:22 | disposition home or self-care (01) ==
LOC: EME 11:41
PROVIDERS: Emergency Medicine
DX: N39.0 Urinary tract infection, site not specified (principal); I10 Essential (primary) hypertension; E78.5 Hyperlipidemia, unspecified; Z79.84 Long term (current) use of oral hypoglycemic drugs; Z87.891 Personal history of nicotine dependence; Z92.3 Personal history of irradiation; Z85.46 Personal history of malignant neoplasm of prostate; Z87.442 Personal history of urinary calculi; Z90.79 Acquired absence of other genital organ(s); Z88.5 Allergy status to narcotic agent; Z88.0 Allergy status to penicillin; Z88.1 Allergy status to other antibiotic agents
CPT/HCPCS: 80048; 81003; 85025; 87077; 87086; 87186; 99281; 99284

== ENCOUNTER 2018-03-01 10:00 | Emergency (ER) | payer OTHER ==
[~2018-03-01] VITALS: Ht 193 cm; Wt 102.0 kg
[2018-03-01 11:27] LABS: APPEARANCE CLEAR ((CLEAR)); BILIRUBIN NEGATIVE; BLOOD NEGATIVE; COLOR YELLOW ((YELLOW)); GLUCOSE (STRIP) NEGATIVE; KETONES NEGATIVE; LEUKOCYTES SMALL; NITRITE NEGATIVE; PROTEIN (STRIP) NEGATIVE; SPECIFIC GRAVITY 1.016 (1.000-1.030); UROBILINOGEN 0.2 MG/DL (0.2-1.0)
[2018-03-01 11:27] LABS: HEMATOCRIT 34.7 % (38.0-50.0); HEMOGLOBIN 12.1 G/DL (12.5-16.6); MCH 30.2 PG (29.0-34.0); MCHC 34.9 G/DL (30.0-36.0); MCV 86.5 FL (86-99); PLATELET COUNT 207 K/uL (156-360); RBC DIS.WIDTH-CV 14.1 % (11.8-14.6); RBC DIS.WIDTH-SD 44.5 % (39-53); RED BLOOD COUNT 4.01 M/uL (4.00-5.50); WHITE BLOOD COUNT 5.2 K/uL (4.1-10.2)
[2018-03-01 11:41] LABS: BACTERIA RARE /HPF; EPITHELIAL CELLS NONE SEEN /HPF; HYALINE CASTS 0-5 /LPF; MUCUS TRACE /LPF; UCUL ADDED? YES
[2018-03-01 11:46] LABS: ALBUMIN 3.9 g/dL (3.2-4.8); CHLORIDE 99 mEq/L (99-109); POTASSIUM 4.6 mEq/L (3.7-5.4); SODIUM 129 mEq/L (136-147)
[2018-03-01 11:48] LABS: GLUCOSE 131 mg/dL (70-99); TOTAL PROTEIN 6.5 g/dL (6.4-8.3)
[2018-03-01 11:50] LABS: TOTAL BILIRUBIN 0.6 mg/dL (0.0-1.0)
[2018-03-01 11:52] LABS: ALKALINE PHOSPHATASE 48 IU/L (3-129); CREATININE 0.9 mg/dL (0.6-1.3); GFR ESTIMATE (CALCULATED) > 59 mL/min/ (58.99-99999)
[2018-03-01 11:53] LABS: AST (GOT) 14 IU/L (2-34); UREA NITROGEN (BUN) 18 mg/dL (9-23)
[2018-03-01 11:55] LABS: ALT (GPT) 17 IU/L (3-49)
[2018-03-01] MEDS ORDERED: PERCOCET 5/31 TABLET PO (12:12)
[2018-03-01] MEDS ORDERED: TORADOL10 MG PO (12:23)
[2018-03-01 12:32] VITALS: BP 128/86
== END 2018-03-01 13:04 | disposition home or self-care (01) ==
LOC: EME 10:00
PROVIDERS: Nurse Practitioner Acute Care
DX: N42.89 Other specified disorders of prostate (principal); R30.0 Dysuria; I10 Essential (primary) hypertension; E78.5 Hyperlipidemia, unspecified; Z79.84 Long term (current) use of oral hypoglycemic drugs; Z87.891 Personal history of nicotine dependence; Z87.442 Personal history of urinary calculi; Z87.448 Personal history of other diseases of urinary system; Z92.3 Personal history of irradiation; Z90.79 Acquired absence of other genital organ(s); Z85.46 Personal history of malignant neoplasm of prostate; Z88.1 Allergy status to other antibiotic agents; Z88.0 Allergy status to penicillin; Z88.5 Allergy status to narcotic agent
CPT/HCPCS: 80053; 81003; 85027; 87077; 87086; 87186; 99281; 99285

== ENCOUNTER 2018-03-11 10:43 | Emergency (ER) | payer OTHER ==
[~2018-03-11] VITALS: Ht 193 cm; Wt 100.3 kg
[2018-03-11 11:11] LABS: APPEARANCE SL.HAZY ((CLEAR)); BILIRUBIN NEGATIVE; BLOOD NEGATIVE; GLUCOSE (STRIP) NEGATIVE; KETONES NEGATIVE; LEUKOCYTES LARGE; NITRITE NEGATIVE; PROTEIN (STRIP) 30; SPECIFIC GRAVITY 1.015 (1.000-1.030); UROBILINOGEN 0.2 MG/DL (0.2-1.0)
[2018-03-11 11:12] LABS: COLOR GREEN ((YELLOW))
[2018-03-11 11:34] LABS: EPITHELIAL CELLS NONE SEEN /HPF; RED BLOOD CELLS NONE SEEN /HPF (0-5); WHITE BLOOD CELLS 20-30 /HPF (0-5)
[2018-03-11 11:35] LABS: BACTERIA RARE /HPF; MUCUS NONE SEEN /LPF; UCUL ADDED? YES
[2018-03-11 12:17] LABS: HEMATOCRIT 38.4 % (38.0-50.0); HEMOGLOBIN 13.1 G/DL (12.5-16.6); MCH 29.9 PG (29.0-34.0); MCHC 34.1 G/DL (30.0-36.0); MCV 87.7 FL (86-99); PLATELET COUNT 261 K/uL (156-360); RBC DIS.WIDTH-CV 13.9 % (11.8-14.6); RBC DIS.WIDTH-SD 45.1 % (39-53); RED BLOOD COUNT 4.38 M/uL (4.00-5.50); WHITE BLOOD COUNT 5.2 K/uL (4.1-10.2)
[2018-03-11 12:52] LABS: CHLORIDE 97 MEQ/L (99-109); CREATININE 0.9 MG/DL (0.6-1.3); GFR ESTIMATE (CALCULATED) > 59 mL/min/ (58.99-99999); GLUCOSE 150 mg/dL (70-99); POTASSIUM 4.8 MEQ/L (3.7-5.4); SODIUM 129 MEQ/L (136-147); UREA NITROGEN (BUN) 17 mg/dL (9-23)
[2018-03-11] MEDS ORDERED: BACTRIM,SEPT1 TABLET PO (15:18)
[2018-03-11 15:45] VITALS: BP 152/94
== END 2018-03-11 15:45 | disposition home or self-care (01) ==
LOC: EME 10:43
DX: N39.0 Urinary tract infection, site not specified (principal); I10 Essential (primary) hypertension; E78.5 Hyperlipidemia, unspecified; Z85.46 Personal history of malignant neoplasm of prostate; Z92.3 Personal history of irradiation; Z87.440 Personal history of urinary (tract) infections; Z87.442 Personal history of urinary calculi; Z87.891 Personal history of nicotine dependence; Z88.5 Allergy status to narcotic agent; Z88.0 Allergy status to penicillin; Z88.1 Allergy status to other antibiotic agents; Z88.8 Allergy status to other drugs, medicaments and biological substances
CPT/HCPCS: 80048; 81003; 85027; 87077; 87086; 87186; 99281; 99284